=== PATIENT | female | born 1995 ===

== ENCOUNTER 2021-10-16 23:17 | Inpatient (IN) | payer SELFPAY ==
[~2021-10-16] VITALS: Ht 157.5 cm; Wt 70.9 kg
--- NOTE | 2021-10-16 23:30 | NUR ---
2330- PT PRESENTS TO LDR COMPLAINING OF CONTRACTIONS, AMBULATORY TO ROOM LR4, CHANGED INTO GOWN. 2339- EFM X2 APPLIED. PT DENIES LEAKING FLUID OR VAGINAL BLEEDING. STATES SHE IS FEELING BABY MOVE. PT SPEAKS [place] ONLY BUT HER SUPPORT PERSON TRANSLATES FOR HER. PLAN OF CARE FOR LABOR CHECK DISCUSSED AND QUESTIONS ANSWERED. 2345- SVE BY THIS NURSE 2-3. SOME BROWNISH OLD BLOOD DISCHARGE NOTED ON GLOVE WITH EXAM. DISCUSSED WATCHING EFM FOR ABOUT AN HOUR AND RECHECKING CERVIX. PT IS AGREEABLE WITH THIS. ORAL HYDRATION PROVIDED. 0024- DR SHEPPARD UPDATED CHARTED. 0056- DR SHEPPARD CALLS CHARTED. ORDERS FOR ADMISSION RECEIVED. 0110- SVE BY THIS NURSE 3-. PT STATES HER CONTRACTIONS ARE MORE INTENSE AND SHE WOULD LIKE AN EPIDURAL. PT INFORMED OF DR SHEPPARD GIVING ADMISSION ORDERS AND DISCUSSED PLAN FOR ADMISSION. 0130- IV START TO LEFT WRIST, BLOOD DRAWN FOR LAB. LR INFUSING, BOLUS STARTED FOR EPIDURAL. 0132- PT UP TO BATHROOM. 0138- PT BACK TO BED AND ON MONITORS. NURSING ADMISSION HISTORY AND ASSESSMENT COMPLETE. 0145- CONSENTS SIGNED. NING GLYNN CALLED FOR EPIDURAL PLACEMENT. 0200- PT FEELING MORE UNCOMFORTABLE AT THIS TIME. SVE BY THIS NURSE -2. 0217- NING GLYNN AT BEDSIDE FOR EPIDURAL PLACEMENT. PT POSITIONED SITTING UP ON EDGE OF BED. THROUGH METHODS EXAMINER, NING DISCUSSES EPIDURAL AND ANSWERS QUESTIONS. TIME OUT COMPLETE. 0231- EPIDURAL TEST DOSE. 0242- EPIDURAL COMPLETE. PT TOLERATED WELL. PT POSITIONED IN LEFT TILT FOR COMFORT AND MONITORS ADJUSTED. PT ALREADY REPORTING IMPROVEMENT IN CONTRACTION PAIN. 0300- PT RESTING QUIETLY THROUGH CONTRACTIONS.
[2021-10-17] VITALS (68 sets, daily range): BP systolic 97–136; BP diastolic 56–92; PULSE 74–114; TEMP 98.1–98.5
[2021-10-17 01:59] LABS: HEMOGLOBIN 10.2 g/dl (12.5-16.0); MEAN CELL VOLUME 81 fl (80.0-100.0); MEAN CORPUSCULAR HEMOGLOBIN 25 pg (27-31); MEAN CORPUSCULAR HGB CONC 31 g/dl (33.0-37.0); MEAN PLATELET VOLUME 12.1 fl (7.4-10.4); PLATELET COUNT 200 K/mm3 (130-400); RED BLOOD COUNT 4.03 M/mm3 (4.10-5.30); REDCELL DISTRIBUTION WIDTH-CV 15.1 % (11.5-14.5)
[2021-10-17] MEDS ORDERED: QUALITY CHOICE1 TA7 (02:03)
[2021-10-17 02:04] LABS: HEMATOCRIT 32.6 % (37.0-47.0)
[2021-10-17 02:26] LABS: BAND 6 % (0-10); EOSINOPHIL 1 % (0-4); LYMPHOCYTE 26 % (20.0-51.0); MYELOCYTE 1 % (0-0); NEUTROPHILS 60 % (42.0-75.2); PLATELET ESTIMATE NORMAL (NORMAL)
[2021-10-17 05:20] LABS: TRICYCLIC ANTIDEPRESS URINE NEGATIVE
--- NOTE | 2021-10-17 08:05 | NUR ---
0805 - MD MILADIS AT BEDSIDE. PLAN OF CARE DISCUSSED WITH PATIENT USING VOYCE IMPREGNATING TANK OPERATOR. PATIENT AGREEABLE TO PLAN. 0808 - SVE PERFORMED BY MD MILADIS. . AROM PERFORMED BY MD MILADIS. CLEAR FLUID NOTED. SHUKRI CARE PERFORMED. PATIENT REPOSITIONED. VOYCE IMPREGNATING TANK OPERATOR USED AGAIN TO OFFER PATIENT OPPORTUNITY TO ASK QUESTIONS AND TO RELAY HER EXAM FINDINGS TO HER. CARE ONGOING.
--- NOTE | 2021-10-17 14:30 | NUR ---
1430 - SVE PERFORMED BY ELLEN MICHELLE. /+2. 1445 - MD MILADIS UPDATED ON ABOVE SVE AND THAT PATIENT TO START PRACTICE PUSHING. MD MILADIS RESPONDS THAT HE WILL BE ON THE UNIT AFTER CLINIC. 1500 - PATIENT INSTRUCTED ON PUSHING. 1510 - PATIENT BEGINS PUSHING WITH CONTRACTIONS. FAIR MATERNAL EFFORT. PATIENT STATES SHE FEELS VERY TIRED. CARE ONGOING.
--- NOTE | 2021-10-17 15:30 | NUR ---
1530 - PATIENT CONTINUES PUSHING WITH CONTRACTIONS. CARE ONGOING.
--- NOTE | 2021-10-17 16:00 | NUR ---
1600 - PATIENT CONTINUES PUSHING WITH CONTRACTIONS. GOOD MATERNAL EFFORT NOTED. CARE ONGOING.
--- NOTE | 2021-10-17 16:20 | NUR ---
1620 - PATIENT LABORING DOWN AWAITING PHYSICIAN ARRIVAL. 1630 - PATIENT LABORING DOWN. RESTING COMFORTABLY. 165 - MD MILADIS AT BEDSIDE. PATIENT BEGINS PUSHING WITH CONTRACTIONS. GOOD MATERNAL EFFORT. 165 - SPONTANEOUS VAGINAL DELIVERY OF FEMALE INFANT. HEAD FOLLOWED BY BODY. ESTUARDORN ASSUMES CARE OF . 170 - SPONTANEOUS DELIVERY OF INTACT PLACENTA. MD MILADIS REPAIRS 2ND DEGREE. STRAIGHT CATH PERFORMED BY MD MILADIS. FUNDAL MASSAGE PERFORMED BY . PITOCIN BOLUS INITIATED. SHUKRI CARE PERFORMED. PATIENT REPOSITIONED. CARE ONGOING.
--- NOTE | 2021-10-17 20:11 | NUR ---
pt states she is very exhausted and is trying to sleep. vs stable. fundus firm at [facility]. lochia scant. pt's left leg is still numb and she is not able to bend her knee yet. friend at bedside. pt states she is not having any pain and does not want any medication.
--- NOTE | 2021-10-17 21:40 | NUR ---
PT'S LEFT LEG IS STILL NUMB. SHE IS NOT ABLE TO AMB TO BR YET. STRAIGHT CATHED 1000 CC OUT. PERICARE DONE, PADS CHANGED AND UNDERWARE PUT ON. PT TRANSFERED TO PP ROOM 214 VIA THE STEADY STEP. PT TOLERATED IT WELL. NO COMPLAINTS. PT ORIENTED TO HER PP ROOM, MENU AND CALL LIGHT. HER FRIEND INTERPRETED FOR HER.
[2021-10-18 01:00] VITALS: BP 115/67; PULSE 89; TEMP 98.1
[2021-10-18 04:00] VITALS: BP 110/64; PULSE 80; TEMP 97.9
[2021-10-18] MEDS ORDERED: IBU600 MG PO (07:36)
[2021-10-18 08:30] VITALS: BP 90/52; PULSE 83; TEMP 97.2
--- NOTE | 2021-10-18 12:05 | NUR ---
Initial visit; Patient Indonesian speaking only. Patient understood Health Outcomes Liaison's signing of the cross to mean she was Health Outcomes Liaison however that is as far as it went. smiled and nodded yes to her hoping she understood she welcomed her and her little girl.
--- NOTE | 2021-10-18 16:50 | NUR ---
mill worker met with mother of baby via seismic interpreter. Sw will continue to visit with mother about needs tomorrow.
[2021-10-18 17:00] VITALS: BP 100/70; PULSE 78; TEMP 98.4
[2021-10-18 19:30] VITALS: BP 95/47; PULSE 56; TEMP 98.2
[2021-10-19 09:30] VITALS: BP 109/66; PULSE 89; TEMP 98.1
--- NOTE | 2021-10-19 12:50 | NUR ---
Patient expressed to this SW via clinical advisor service [id number]. Patient reports that she is living in [place] with her friend. She reports to being here from approx. 1 month and feels "safe". Patient denies having a place of employment. This is the patients first child and states that she has a car seat, diapers, and clothing for baby. Upon entry to the room, patient is observed nursing infant. Patient is provided the [facility] resource guide. More follow up interaction help with service crew supervisor Anabella Burden.
--- NOTE | 2021-10-19 15:18 | NUR ---
boat worker met with Brunilda bilingual navigator with [facility] and confirmed that she has been working with the patient. Chaplain Sheridan offered resources to patient for her consideration regarding housing. Patient chose to return home to the apartment where she is staying currently.
== END 2021-10-19 15:00 | disposition home or self-care (01) | DRG 807 ==
LOC: LDRO 23:17 → OB 10-17 01:15 → LDR 10-17 01:15 → OB 10-17 22:00
PROVIDERS: Obstetrics & Gynecology; ADMIT Obstetrics & Gynecology
PROC: 10E0XZZ Delivery of Products of Conception, External Approach (ICD-10-PCS; principal; 2021-10-17)
PROC: 0KQM0ZZ Repair Perineum Muscle, Open Approach (ICD-10-PCS; 2021-10-17)
PROC: 10907ZC Drainage of Amniotic Fluid, Therapeutic from Products of Conception, Via Natural or Artificial Opening (ICD-10-PCS; 2021-10-17)
DX: O48.0 Post-term pregnancy (principal); Z37.0 Single live birth; Z3A.40 40 weeks gestation of pregnancy; O77.0 Labor and delivery complicated by meconium in amniotic fluid; O70.1 Second degree perineal laceration during delivery
CPT/HCPCS: J2405; J2590; J7120

== ENCOUNTER → 2021-10-16 | Outpatient (CLI) | payer SELFPAY ==
[~2021-10-16] VITALS: Ht 160 cm; Wt 70.9 kg
[~2021-10-16] MED LIST: IBU600 MG PO; QUALITY CHOICE1 TA7
--- NOTE | 2021-10-16 14:05 | NUR ---
1405 - PATIENT AMBULATORY TO LDR2 ACCOMPANIED BY FRIEND. PATIENT IS ESTONIAN SPEAKING ONLY. CONVEYANCER IPAD IN ROOM. PLAN OF CARE DISCUSSED PATIENT CHANGES INTO GOWN. PATIENT REPORTS THAT SHE IS HERE DUE TO CONTRACTIONS. SHE DENIES ANY LEAKING OF FLUID OR BLOODY SHOW. PATIENT REPORTS GOOD MOVEMENT. 1410 - PATIENT ON MONITOR. 1412 - SVE PERFORMED BY ELLEN VANCE. . CARE ONGOING.
[2021-10-16 14:30] VITALS: BP 124/83; PULSE 88; TEMP 98.6
[2021-10-16 15:00] VITALS: PULSE 87
[2021-10-16 15:30] VITALS: PULSE 75
== END ==
LOC: LDRO 13:46
DX: Z34.93 Encounter for supervision of normal pregnancy, unspecified, third trimester (principal); Z3A.40 40 weeks gestation of pregnancy

== ENCOUNTER 2023-05-01 00:32 | Observation (INO) | payer SELFPAY ==
[~2023-05-01] VITALS: Ht 162.6 cm; Wt 56.0 kg
[2023-05-01] VITALS (9 sets, daily range): BP systolic 92–116; BP diastolic 57–74; PULSE 76–83; TEMP 97.7–98.5
[2023-05-01] MEDS ORDERED: Ondansetron 4 MG/2 ML VIAL IV ONE (01:00)
[2023-05-01] MEDS ORDERED: NS 1,000 ML IV ONE (01:00)
[2023-05-01] MEDS ORDERED: Ketorolac 30 MG/ML VIAL IV ONE (01:00)
[2023-05-01 01:07] LABS: COLLECTION METHOD CLEAN CATCH
[2023-05-01 01:12] LABS: BASO % 0.3 % (0.0-2.0); EOS # 0.1 K/mm3 (0.0-0.7); EOS % 0.9 % (0.0-4.0); GRAN # 8.6 K/mm3 (1.4-6.5); GRAN % 66.9 % (42.2-75.2); HEMOGLOBIN 12.9 g/dl (12.5-16.0); LYMPH # 3.5 K/mm3 (1.2-3.4); LYMPH % 26.9 % (20.0-51.0); MEAN CELL VOLUME 80 fl (80.0-100.0); MEAN CORPUSCULAR HEMOGLOBIN 26 pg (27-31); MEAN CORPUSCULAR HGB CONC 33 g/dl (33.0-37.0); MEAN PLATELET VOLUME 11.6 fl (7.4-10.4); MONO # 0.6 K/mm3 (0.1-0.6); MONO % 4.8 % (1.7-9.3); PLATELET COUNT 239 K/mm3 (130-400); RED BLOOD COUNT 4.89 M/mm3 (4.10-5.30); REDCELL DISTRIBUTION WIDTH-CV 14.2 % (11.5-14.5)
[2023-05-01 01:14] LABS: PH 7.5 (5.0-8.5); URINE APPEARANCE CLEAR (CLEAR/HAZY); URINE BLOOD NEGATIVE (NEGATIVE); URINE COLOR YELLOW (YELLOW); URINE GLUCOSE NEGATIVE (NEGATIVE); URINE KETONE NEGATIVE (NEGATIVE); URINE NITRATE NEGATIVE (NEGATIVE); URINE PROTEIN(semi-quant) NEGATIVE (NEGATIVE)
[2023-05-01 01:29] LABS: ALBUMIN 3.9 gm/dL (3.5-5.0); BILIRUBIN,TOTAL 0.4 mg/dL (0.2-1.2); C-REACTIVE PROTEIN 0.04 mg/dL (0.00-0.50); CALCIUM 9.1 mg/dL (8.4-10.2); CREATININE, serum 0.75 mg/dL (0.57-1.11); TOTAL PROTEIN 7.3 gm/dL (6.2-8.1)
[2023-05-01] MEDS ORDERED: Iohexol 300 - 100 ML VIAL IV ONE (01:59)
[2023-05-01] MEDS ORDERED: NS 50 ML IV ONE (02:00)
[2023-05-01] MEDS ORDERED: Ondansetron 4 MG/2 ML VIAL IV PRN ×2 (04:00→10:00)
[2023-05-01] MEDS ORDERED: Morphine 4 MG/ML VIAL IV PRN (04:00)
[2023-05-01] MEDS ORDERED: NS 1,000 ML IV SCH (04:00)
--- NOTE | 2023-05-01 04:04 | NUR ---
PT ARRIVED TO SURGICAL UNIT VIA BED ACCOMPANIED BY ED STAFF. PT IS ONLY CITIZEN OF [place] SPEAKING, KNOW NO [place]. TRANSIT PLANNING MANAGER IS USED. PT CURRENTLY REPORTS NO PAIN. PT SIBLING IS INFORMED OF VISITIING HOURS. PT VITALS ARE STABLE. PT IS [id number]. PT ORIENTED TO ROOM AND UNIT. EXPLAINED REASON OF STAY AND PLAN OF CARE. ZOSYN INFUSING IN PERIPHERAL IV SITE. PT BELONGINGS PUT IN CABINET. PT INFORMED HOW TO USE CALL LIGHT, IN REACH. PLAN OF CARE ONGOING.
[2023-05-01] MEDS ORDERED: LR 1,000 ML IV SCH (08:30)
--- NOTE | 2023-05-01 08:30 | NUR ---
Pt. sitting up in bed. Pt. is A&OX3, assessment complete. Dr. Graham in for Assessment, aba therapist utilized for consent for surgery and explaination of procedure. Pt. verbalized understanding. Consent signed with 2 nurse witness and aba therapist.
[2023-05-01] MEDS ORDERED: Lidocaine PF 2% (20 MG/ML) 5 ML VIAL ONE (08:39)
[2023-05-01] MEDS ORDERED: Succinylcholine PF 100 MG/5 ML SYRINGE/POLY AMP IV ONE (08:39)
[2023-05-01] MEDS ORDERED: Rocuronium 50 MG/5 ML Multi-Dose VIAL ONE (08:40)
[2023-05-01] MEDS ORDERED: fentaNYL 50 MCG/ML 2 ML VIAL ONE (08:42)
[2023-05-01] MEDS ORDERED: dexAMETHasone 10 MG/ML VIAL ONE (09:43)
[2023-05-01] MEDS ORDERED: Ondansetron 4 MG/2 ML VIAL ONE (09:43)
[2023-05-01] MEDS ORDERED: Ketorolac 30 MG/ML VIAL ONE (09:56)
[2023-05-01] MEDS ORDERED: Meperidine 50 MG/ML 1 ML VIAL IV PRN (10:00)
[2023-05-01] MEDS ORDERED: HYDROmorphone 2 MG/1 ML VIAL IV PRN (10:00)
[2023-05-01] MEDS ORDERED: fentaNYL 50 MCG/ML 2 ML VIAL IV PRN (10:00)
--- NOTE | 2023-05-01 11:05 | NUR ---
Pt. to the floor from PACU. Pt. is A&OX3, assessment wnl. IV to rt. forearm patent. Pt. denies pain or other needs. Vitals stable.
[2023-05-01] MEDS ORDERED: Acetaminophen 325 MG TAB PO PRN (11:30)
[2023-05-01] MEDS ORDERED: NORCO 325 MG-51 TAB PO (14:39)
--- NOTE | 2023-05-01 14:48 | NUR ---
Pt. tolerating po, has urinated, and pain is tolerabe. Dr. Graham notified of Pt. status, New orders reveived.
--- NOTE | 2023-05-01 15:15 | NUR ---
Pt. has met discharge critieria. With the assistance of a wire tester, Reviewed and gave the pt. discharge instructions. Pt. and family voice understanding. Pt. denies questions or other needs, Pt. escorted out by wheelchair.
== END 2023-05-01 15:15 | disposition home or self-care (01) ==
LOC: COL.ER 00:32 → SURG 03:17
PROVIDERS: Emergency Medicine; ADMIT Surgery
DX: K35.80 Unspecified acute appendicitis (principal)
CPT/HCPCS: G0378; J0330; J1100; J1885; J2405; J2543; J2704; J3010; J7030; J7120; Q9967